=== PATIENT | male | born 1990 | race Caucasian/White ===

== ENCOUNTER 2023-09-13 23:47 | Emergency (ER) | payer MEDICAID, SELFPAY ==
[2023-09-13 23:50] VITALS: BP 148/101; PULSE 84; RESP 18; TEMP 36.5; O2SAT 98; BMI 23.0
--- NOTE | 2023-09-14 00:01 | [facility].EDGENADL ---
Discharge Plan Disposition Patient Disposition: Home, Self-Care Condition: Good Chief Complaint: Medical Clearance Clinical Impressions Clinical Impression: Encounter for medical assessment Instructions Patient Instructions: DI for Substance Use Disorder Discharge ED Provider: Yadiel Rivas General Adult HPI General Stated complaint: Medical Clearancd Time Seen by Provider: 09/13/23 23:59 History of Present Illness HPI narrative: Patient has a PMHx significant for substance use disorder including meth who presents to the ED for chcf clearance. Patient was pulled over for a traffic violation by PD. Patient drug paraphernalia in the car. Patient admitted to methamphetamine use around 6 PM today. Patient was brought to the ED for chcf clearance. Patient has no acute complaints, no chest pain, shortness of breath, dizziness, headaches, nausea, vomiting, abdominal pain [facility] Disclaimer: The information contained in this section may have been updated after the patient was seen, as this information can be updated by other users. Social History Smoking Status: Current every day smoker alcohol intake: current current occupational status: unemployed Travel in the last 8 weeks: None ROS Obtained: Yes All systems reviewed & no additional complaints except as documented Physical Exam General General appearance: alert and in no apparent distress Head Head exam: atraumatic, normocephalic and normal inspection Eye Eye exam: Present normal appearance, PERRL and EOMI; Absent scleral icterus or nystagmus ENT ENT exam: Present normal exam, mucous membranes moist and normal external ear exam Neck Neck exam: Present normal inspection, full ROM and trachea midline Chest Chest inspection: Present normal inspection and symmetric chest wall rise; Absent tenderness Respiratory Respiratory exam: Present normal lung sounds bilaterally; Absent respiratory distress, wheezes or accessory muscle use Cardiovascular Cardiovascular exam: Present regular rate, normal rhythm and normal heart sounds Abdominal Exam Abdominal exam: Present soft; Absent distention, tenderness, guarding, rebound, rigidity, trauma, ascites or pulsatile mass exam: Present deferred Extremities Exam Extremities exam: Present normal inspection and full ROM; Absent tenderness Back Exam Back exam: Present normal inspection and full ROM; Absent tenderness Neurological Exam Neurological exam: Present alert, oriented X3, normal gait and motor sensory deficit Psychiatric Psychiatric exam: Present normal affect and normal mood Skin Skin exam: Present warm, dry and normal color Medical Decision Making Medical Records Medical records reviewed: Yes I reviewed the patient's medical records. Bry Inquiry Pt receiving controlled substance: No Lab Data Lab results reviewed: Yes I reviewed the patient's lab results. Medical Decision Narrative: In summary, Patient has a PMHx significant for substance use disorder including meth who presents to the ED for chcf clearance. Patient was pulled over for a traffic violation by PD. Patient drug paraphernalia in the car. Patient admitted to methamphetamine use around 6 PM today. Patient was brought to the ED for chcf clearance. Patient has no acute complaints, no chest pain, shortness of breath, dizziness, headaches, nausea, vomiting, abdominal pain. Patient was afebrile, hemodynamically stable, in no respiratory distress, and nontoxic in appearance upon arrival and throughout the entire stay in the ED. Physical examination was unremarkable, including lungs CTAB, normal cardiac auscultation, benign abdominal exam with no focal TTP, and no acute neurological deficit. Given the HPI w/ no red flags, well-appearing nature of patient, stable vitals, and reassuring physical examination, the need for in-depth laboratory or radiographic evaluation was deemed unnecessary at this time. At this time, given the fact that patient
[2023-09-14 00:03] VITALS: BP 148/100; PULSE 90; RESP 20; TEMP 36.5; O2SAT 97
== END 2023-09-14 00:07 ==
PROVIDERS: Emergency Provider Emergency Medicine
DX: F15.90 Other stimulant use, unspecified, uncomplicated (principal); F17.200 Nicotine dependence, unspecified, uncomplicated
CPT/HCPCS: 99281